=== PATIENT | male | born 1945 | race Caucasian/White ===

== ENCOUNTER 2016-10-22 15:20 | Inpatient (IN) | payer BC ==
[~2016-10-22] VITALS: Ht 188 cm; Wt 106.2 kg
[2016-10-22 17:16] LABS: HEMATOCRIT 46.5 % (38.0-50.0); MCH 30.8 PG (29.0-34.0); MCHC 33.8 G/DL (30.0-36.0); MCV 91.4 FL (86-99); MEAN PLAT.VOLUME 9.8 uM^3 (9.0-12.4); PLATELET COUNT 175 K/uL (156-360); RBC DIS.WIDTH-CV 12.4 % (11.8-14.6); RBC DIS.WIDTH-SD 41.4 % (39-53); RED BLOOD COUNT 5.09 M/uL (4.00-5.50); WHITE BLOOD COUNT 7.6 K/uL (4.1-10.2)
[2016-10-22 17:29] LABS: CHLORIDE 108 mEq/L (99-109); POTASSIUM 4.5 mEq/L (3.7-5.4); SODIUM 143 mEq/L (136-147)
[2016-10-22 17:31] LABS: GLUCOSE 104 mg/dL (70-99)
[2016-10-22 17:32] LABS: ANION GAP 9 MEQ/L (2-14)
[2016-10-22 17:36] LABS: UREA NITROGEN (BUN) 15 mg/dL (9-23)
[2016-10-22 17:39] LABS: GFR ESTIMATE (CALCULATED) 49 mL/min/
[2016-10-22 17:41] LABS: TROP-I INTERPRETATION NEGATIVE; TROPONIN-I < 0.01 ng/mL (0.0-0.30)
[2016-10-22 19:57] LABS: ADD MIUA? NO; BILIRUBIN NEGATIVE; BLOOD NEGATIVE; COLOR YELLOW ((YELLOW)); GLUCOSE (STRIP) NEGATIVE; KETONES NEGATIVE; LEUKOCYTES NEGATIVE; NITRITE NEGATIVE; PROTEIN (STRIP) NEGATIVE; UROBILINOGEN 0.2 MG/DL (0.2-1.0)
[2016-10-22 20:11] LABS: SPECIFIC GRAVITY 1.095 (1.000-1.030)
[2016-10-22 20:35] VITALS: BP 145/70
[2016-10-22 21:35] VITALS: BP 145/70
[2016-10-23] VITALS (7 sets, daily range): BP systolic 111–144; BP diastolic 60–80
[2016-10-23 06:09] LABS: HEMATOCRIT 41.8 % (38.0-50.0); MCHC 33.7 G/DL (30.0-36.0); MCV 91.9 FL (86-99); MEAN PLAT.VOLUME 9.8 uM^3 (9.0-12.4); PLATELET COUNT 151 K/uL (156-360); RBC DIS.WIDTH-CV 12.6 % (11.8-14.6); RBC DIS.WIDTH-SD 42.4 % (39-53); RED BLOOD COUNT 4.55 M/uL (4.00-5.50); WHITE BLOOD COUNT 7.3 K/uL (4.1-10.2)
[2016-10-23 06:43] LABS: ANION GAP 8 MEQ/L (2-14); CHLORIDE 106 MEQ/L (99-109); GFR ESTIMATE (CALCULATED) > 59 mL/min/; GLUCOSE 103 mg/dL (70-99); POTASSIUM 4.3 MEQ/L (3.7-5.4); SAMPLE HEMOLYSIS CHECK 0; SAMPLE ICTERIC CHECK 0; SAMPLE LIPEMIA CHECK 0; SODIUM 141 MEQ/L (136-147); UREA NITROGEN (BUN) 14 mg/dL (9-23)
[2016-10-24 03:16] VITALS: BP 137/68
[2016-10-24 07:42] VITALS: BP 139/66
[2016-10-24 10:47] LABS: LYME DISEASE SEROLOGY SCREEN POSITIVE (NEGATIVE)
[2016-10-24 12:00] VITALS: BP 133/69
[2016-10-24 15:59] VITALS: BP 138/69
[2016-10-25 00:02] VITALS: BP 124/61
[2016-10-25 07:36] VITALS: BP 134/78
[2016-10-25] MEDS ORDERED: POLYMYXIN B-TMP10 ML RIGHT EYE ×2 (09:16→11:55)
[2016-10-25] MEDS ORDERED: PREDNISOLONE AC15 ML RIGHT EYE ×2 (09:17→11:55)
[2016-10-25] MEDS ORDERED: KEFLEX500 MG PO ×2 (09:17→11:27)
[2016-10-25] MEDS ORDERED: CEFUROXIME500 MG PO (11:32)
== END 2016-10-25 12:10 | disposition home or self-care (01) | DRG 988 ==
LOC: EME 15:20 → 5EAST 22:01 → EDOF 22:01 → 5EAST 23:31
PROVIDERS: Hospitalist; Nurse Practitioner Family
DX: L03.116 Cellulitis of left lower limb (principal); A69.20 Lyme disease, unspecified; H33.011 Retinal detachment with single break, right eye; H54.61 Unqualified visual loss, right eye, normal vision left eye; I73.9 Peripheral vascular disease, unspecified; N28.1 Cyst of kidney, acquired; K57.30 Diverticulosis of large intestine without perforation or abscess without bleeding; M19.90 Unspecified osteoarthritis, unspecified site; N18.9 Chronic kidney disease, unspecified; W11.XXXA Fall on and from ladder, initial encounter; N40.0 Benign prostatic hyperplasia without lower urinary tract symptoms; W57.XXXA Bitten or stung by nonvenomous insect and other nonvenomous arthropods, initial encounter; M47.812 Spondylosis without myelopathy or radiculopathy, cervical region; Z83.3 Family history of diabetes mellitus
CPT/HCPCS: 70450; 71260; 72125; 72129; 72132; 74177; 80048; 81003; 84484; 85027; 86617 90; 86618; 93005; 93971; 99281; 99285; J0690; J0696; J1644; J2405; J3300; J3370; J7030; J7050